=== PATIENT | male | born 2000 | race Caucasian/White ===

== ENCOUNTER 2024-03-12 21:11 | Emergency (ER) | payer SELFPAY ==
[~2024-03-12] VITALS: Ht 175.3 cm; Wt 69.9 kg
[2024-03-12 21:22] VITALS: TEMP 98.5
[2024-03-12] MEDS ORDERED: diphenhydrAMINE HCL 25 MG CAPSULE ONE (22:03)
[2024-03-12] MEDS ORDERED: FAMOTIDINE (20 MG) 20 MG TABLET ONE (22:03)
[2024-03-12] MEDS: diphenhydrAMINE HCL 25 MG CAPSULE PO ONE (22:06)
[2024-03-12] MEDS: FAMOTIDINE (20 MG) 20 MG TABLET PO ONE (22:06)
[2024-03-12 22:32] LABS: BASOPHILS # (AUTO) 0.1 K/uL (0.0-0.2); BASOPHILS % (AUTO) 0.9 % (0.0-2.0); EOSINOPHILS # (AUTO) 0.2 K/uL (0.0-0.7); EOSINOPHILS % (AUTO) 3.5 % (0.0-6.0); HEMATOCRIT 43 % (39-51); HEMOGLOBIN 14.7 g/dL (13.5-17.5); LYMPHOCYTES # (AUTO) 1.6 K/uL (0.8-4.8); LYMPHOCYTES % (AUTO) 24.6 % (20.0-44.0); MEAN CORPUSCULAR HEMOGLOBIN 31 PG (26.0-33.0); MEAN CORPUSCULAR HGB CONC 34 g/dl (31.0-36.0); MEAN CORPUSCULAR VOLUME 92 fL (80-96); MONOCYTES # (AUTO) 0.5 K/uL (0.1-1.30); MONOCYTES % (AUTO) 8.1 % (2.0-12.0); NEUTROPHILS % (AUTO) 62.9 % (43.0-81.0); PLATELET COUNT (AUTO) 197 K/uL (150-450); RED CELL DISTRIBUTION WIDTH 13.1 % (11.5-15.0); WHITE BLOOD COUNT (AUTO) 6.4 K/uL (4.3-11.0)
[2024-03-12 22:40] LABS: CALCIUM, SERUM 8.5 mg/dL (8.5-10.1); POTASSIUM 3.9 mmol/L (3.5-5.1)
[2024-03-12 22:47] LABS: INR 1.11 (0.91-1.10); PARTIAL THROMBOPLASTIN TIME 28.8 SEC (24.3-34.3); PROTHROMBIN TIME 11.7 SECS (9.2-11.1)
[2024-03-12 22:49] LABS: BILIRUBIN,DIRECT 0.2 mg/dL (0.0-0.2); BILIRUBIN,TOTAL 0.9 mg/dL (0.2-1.0); TOTAL PROTEIN, SERUM 7.5 g/dL (6.4-8.2)
[2024-03-12] MEDS ORDERED: FAMO20TA80 PO (23:07)
[2024-03-12 23:18] VITALS: BP 130/70; O2SAT 97
== END 2024-03-12 23:19 | disposition home or self-care (01) ==
LOC: ER 21:19
DX: R10.31 Right lower quadrant pain (principal)
CPT/HCPCS: 99283; 85025; 80048; 83690; 80076; 36415; 85730; Q0163